=== PATIENT | female | born 1940 | race Hispanic/Latino ===

== ENCOUNTER → 2017-08-02 | Outpatient (CLI) | payer OTHER ==
[~2017-08-02] MED LIST: ACET-2247 PO; AMLO10TA2 PO; ASCO500C6 PO; ASPI-555 PO; ATOR20TA65 PO; ATOR40TA71 PO; CALC3.8S NS; CALC400I NASAL; CHOL50004 PO; CLOP75TA14 PO; DEXA4TAB PO; DIPH25 PO; DIPH30C TP; FOLI1TAB85 PO; FURO40TA7 PO; HYDR-309 PO; LACT10SO PO; LENA25CA PO; LISI-613 PO; LISI10TA7 PO; MAGN400C PO; METO-391 PO; METO-408 PO; METO-409 PO; MULT1TAB66 PO; OMEG-58 PO; POTA-79 PO; TICA90TA PO; ZINC56.7 TP
== END | disposition home or self-care (01) ==
LOC: SHCH 08:19
PROVIDERS: ATTEND Internal Medicine Cardiovascular Disease
DX: I10 Essential (primary) hypertension (principal)
CPT/HCPCS: 93306

== ENCOUNTER 2017-08-30 05:43 | Observation (INO) | payer OTHER ==
[2017-08-25 10:06] VITALS: BP 165/83
[2017-08-25 10:23] LABS: BILIRUBIN,URINE Negative (NEGATIVE); COLOR,URINE Yellow (YELLOW); GLUCOSE, URINE (UA) Negative (NEGATIVE); KETONES,URINE Negative (NEGATIVE); LEUKOCYTE ESTERASE ,URINE Trace (NEGATIVE); NITRATE,URINE Negative (NEGATIVE); OCCULT BLOOD,URINE Negative (NEGATIVE); PROTEIN,URINE Negative (NEGATIVE)
[2017-08-25 10:24] LABS: BASOPHILS % (AUTO) 0.6 % (0.0-5.0); EOSINOPHILS % (AUTO) 0.9 % (0.0-8.0); HEMATOCRIT 30.7 % (36-48); LYMPHOCYTES % (AUTO) 30.9 % (21.0-51.0); MEAN CORPUSCULAR HEMOGLOBIN 32.5 pg (27.0-33.0); MEAN CORPUSCULAR HGB CONC 34.5 g/dL (32.0-36.0); MEAN CORPUSCULAR VOLUME 94.2 fL (79-99); MONOCYTES % (AUTO) 9.4 % (3.0-13.0); NEUTROPHILS % (AUTO) 58.2 % (40.0-77.0); PLATELET COUNT (AUTO) 161 K/uL (130-400); RED BLOOD CELL COUNT(AUTO) 3.26 MIL/uL (4.00-5.50); RED CELL DISTRIBUTION WIDTH 14.7 % (11.0-15.5); WHITE BLOOD COUNT (AUTO) 4.9 K/uL (4.8-10.8)
[2017-08-25 10:26] LABS: APPEARANCE,URINE CLEAR (CLEAR)
[2017-08-25 10:34] LABS: POTASSIUM 4.1 mmol/L (3.5-5.1)
[2017-08-25 10:36] LABS: INR 1.12 (0.85-1.15); PARTIAL THROMBOPLASTIN TIME 34.2 SEC (26.3-35.5); PROTHROMBIN TIME 11.7 SEC (9.6-11.6)
[2017-08-25 10:38] LABS: AMORPHOUS SEDIMENT,UR Moderate /LPF (None Seen); BACTERIA,URINE Few /HPF (None Seen); MUCUS,URINE Few LPF (None Seen); RBC,URINE None Seen /HPF (0-1); WBC,URINE 0-1 /HPF (0-1)
[2017-08-30] VITALS (12 sets, daily range): BP systolic 137–182; BP diastolic 60–93
[~2017-08-30] VITALS: Ht 160 cm; Wt 75.9 kg
[~2017-08-30 05:43] MED LIST changes: -ACET-2247 PO; -AMLO10TA2 PO; -ASCO500C6 PO; -ASPI-555 PO; -ATOR20TA65 PO; -CALC3.8S NS; -CALC400I NASAL; -CLOP75TA14 PO; -DEXA4TAB PO; -DIPH25 PO; -DIPH30C TP; -FOLI1TAB85 PO; -FURO40TA7 PO; -HYDR-309 PO; -LACT10SO PO; -LENA25CA PO; -LISI-613 PO; -MAGN400C PO; -METO-408 PO; -METO-409 PO; -POTA-79 PO; +SODIUM CHLORIDE 0.9% 500ML 500 ML IV SCH; -TICA90TA PO; -ZINC56.7 TP
[2017-08-30] MEDS ORDERED: ASPI-555 PO (06:53)
[2017-08-30] MEDS ORDERED: SODIUM CHLORIDE 0.9% 1000ML 1,000 ML IV ONE (07:05)
[2017-08-30] MEDS ORDERED: IOPAMIDOL-370 100 ML VIAL IV ONE ×2 (07:11→07:59)
[2017-08-30] MEDS ORDERED: LIDOCAINE HCL 2% 20ML ONE (07:11)
[2017-08-30] MEDS ORDERED: NITROGLYCERIN 5 MG/ML 10 ML VIAL IV ONE (07:11)
[2017-08-30] MEDS ORDERED: BIVALIRUDIN 250 MG/VIAL IV ONE (07:11)
[2017-08-30] MEDS ORDERED: ISOVUE-370 50ML VIAL IV ONE ×2 (07:11→07:48)
[2017-08-30] MEDS ORDERED: FENTANYL CITRATE PF 50 MCG/1 ML 2ML VIAL ONE (07:38)
[2017-08-30] MEDS ORDERED: MIDAZOLAM HCL 1 MG/ML 2ML VIAL ONE (07:38)
[2017-08-30] MEDS ORDERED: ASPIRIN 81MG TAB.CHEW ONE (08:28)
[2017-08-30] MEDS ORDERED: TICAGRELOR 90 MG TABLET ONE (08:28)
[2017-08-30] MEDS ORDERED: HYDRALAZINE HCL 20 MG/ML VIAL ONE (08:30)
[2017-08-30] MEDS ORDERED: SODIUM CHLORIDE 0.9% 1000ML 1,000 ML IV SCH (08:36)
[2017-08-30] MEDS ORDERED: GLUCAGON 1MG KIT 1 MG ML IM PRN (08:45)
[2017-08-30] MEDS ORDERED: ACETAMINOPHEN-CODEINE 300/30MG TAB PO PRN (08:45)
[2017-08-30] MEDS ORDERED: DEXTROSE 50%-WATER 50 ML DISP.SYRIN IV PRN (08:45)
[2017-08-30] MEDS ORDERED: NITROGLYCERIN 0.4 MG SL TAB SL PRN (08:45)
[2017-08-30] MEDS ORDERED: METOPROLOL TARTRATE 1 MG/ML 5ML VIAL IV PRN (08:45)
[2017-08-30] MEDS: PANTOPRAZOLE SODIUM 40 MG TABLET.DR PO SCH (08:55)
[2017-08-30] MEDS: LISINOPRIL 10 MG TABLET PO SCH ×2 (09:00→21:40)
[2017-08-30] MEDS: TICAGRELOR 90 MG TABLET PO SCH ×2 (09:00→21:40)
[2017-08-30] MEDS: ASPIRIN 81 MG EC TAB PO SCH (09:00)
[2017-08-30 12:15] LABS: CREATINE KINASE MB < 0.5 ng/mL (0.5-3.6); CREATINE KINASE, TOTAL 25 U/L (21-232); MYOGLOBIN 30 ng/mL (10-92); TROPONIN I 0.04 ng/mL (0.00-0.06)
[2017-08-30] MEDS ORDERED: FUROSEMIDE 10 MG/ML 4ML VIAL IV ONE (16:45)
[2017-08-30] MEDS: ATORVASTATIN CALCIUM 40 MG TABLET PO SCH (21:40)
[2017-08-30] MEDS: METOPROLOL TARTRATE 25 MG TAB PO SCH (21:40)
[2017-08-31] VITALS (8 sets, daily range): BP systolic 128–185; BP diastolic 60–86
[2017-08-31 03:46] LABS: HEMATOCRIT 31.8 % (36-48); MEAN CORPUSCULAR HEMOGLOBIN 31.7 pg (27.0-33.0); MEAN CORPUSCULAR HGB CONC 34.1 g/dL (32.0-36.0); PLATELET COUNT (AUTO) 167 K/uL (130-400); RED BLOOD CELL COUNT(AUTO) 3.42 MIL/uL (4.00-5.50); RED CELL DISTRIBUTION WIDTH 14.7 % (11.0-15.5); WHITE BLOOD COUNT (AUTO) 5.8 K/uL (4.8-10.8)
[2017-08-31 04:24] LABS: POTASSIUM 3.2 mmol/L (3.5-5.1)
[2017-08-31] MEDS: TICAGRELOR 90 MG TABLET PO SCH ×2 (07:28→22:43)
[2017-08-31] MEDS: ASPIRIN 81 MG EC TAB PO SCH (07:28)
[2017-08-31] MEDS: METOPROLOL TARTRATE 25 MG TAB PO SCH (07:28)
[2017-08-31] MEDS: PANTOPRAZOLE SODIUM 40 MG TABLET.DR PO SCH (07:28)
[2017-08-31] MEDS: LISINOPRIL 10 MG TABLET PO SCH ×2 (07:28→22:43)
[2017-08-31] MEDS: MULTIVITAMIN TABLET PO SCH (08:10)
[2017-08-31] MEDS: HYDRALAZINE HCL 20 MG/ML VIAL IV PRN (08:12)
[2017-08-31] MEDS ORDERED: POTASSIUM CHLORIDE 20 MEQ ERTAB PO PRN (08:15)
[2017-08-31] MEDS ORDERED: POTASSIUM CHLORIDE 20MEQ/100ML 100 ML IV PRN (08:15)
[2017-08-31] MEDS ORDERED: POTASSIUM CHLORIDE 10% ELIXIR 20 MEQ/15 ML UDCUP PO PRN (08:15)
[2017-08-31] MEDS ORDERED: LIDOCAINE HCL-MPF 1% 2ML VIAL IVP PRN (08:15)
[2017-08-31] MEDS ORDERED: FUROSEMIDE 10 MG/ML 4ML VIAL IV SCH ×2 (08:15)
[2017-08-31] MEDS ORDERED: LISINOPRIL 10 MG TABLET PO SCH ×2 (08:30→09:00)
[2017-08-31] MEDS ORDERED: METOPROLOL TARTRATE 25 MG TAB PO SCH ×3 (08:30→21:00)
[2017-08-31] MEDS: POTASSIUM CHLORIDE 10% ELIXIR 20 MEQ/15 ML UDCUP PO SCH ×2 (08:46→11:08)
[2017-08-31] MEDS ORDERED: AMLODIPINE BESYLATE 5 MG TAB PO SCH (09:00)
[2017-08-31] MEDS ORDERED: FUROSEMIDE 20 MG TABLET PO SCH ×3 (17:00→20:15)
[2017-08-31] MEDS: ATORVASTATIN CALCIUM 40 MG TABLET PO SCH (22:43)
[2017-08-31] MEDS: POTASSIUM CHLORIDE 20 MEQ ERTAB PO SCH (22:44)
[2017-09-01 03:42] VITALS: BP 174/84
[2017-09-01 04:03] LABS: HEMATOCRIT 31.9 % (36-48); MEAN CORPUSCULAR HGB CONC 34.6 g/dL (32.0-36.0); MEAN CORPUSCULAR VOLUME 92.5 fL (79-99); PLATELET COUNT (AUTO) 177 K/uL (130-400); RED BLOOD CELL COUNT(AUTO) 3.45 MIL/uL (4.00-5.50); RED CELL DISTRIBUTION WIDTH 14.5 % (11.0-15.5); WHITE BLOOD COUNT (AUTO) 5.3 K/uL (4.8-10.8)
[2017-09-01 04:10] LABS: CREATININE 1.2 mg/dL (0.5-1.5); POTASSIUM 3.9 mmol/L (3.5-5.1)
[2017-09-01 04:28] LABS: B-TYPE NATRIURETIC PEPTIDE 1490 pg/mL (0-100)
[2017-09-01 04:40] LABS: BAND NEUTROPHILS % (MANUAL) 2 % (0-2); LYMPHOCYTES % (MANUAL) 23 % (22-44); MAN.DIFF COMMENT-IMPRESSION MANUAL DIFFERENTIAL; MONOCYTES % (MANUAL) 6 % (2-9); SEGMENTED NEUTROPHILS % 69 % (40-70)
[2017-09-01 04:41] LABS: PLATELET MORPHOLOGY COMMENT ADEQUATE
[2017-09-01] MEDS: PANTOPRAZOLE SODIUM 40 MG TABLET.DR PO SCH (07:31)
[2017-09-01 07:53] VITALS: BP 168/87
[2017-09-01] MEDS ORDERED: FUROSEMIDE 40 MG TABLET PO SCH (08:00)
[2017-09-01] MEDS: FUROSEMIDE 40 MG TABLET PO SCH ×2 (08:34→16:15)
[2017-09-01] MEDS: POTASSIUM CHLORIDE 20 MEQ ERTAB PO SCH (08:36)
[2017-09-01] MEDS: MULTIVITAMIN TABLET PO SCH (08:36)
[2017-09-01] MEDS: ASPIRIN 81 MG EC TAB PO SCH (08:36)
[2017-09-01] MEDS: TICAGRELOR 90 MG TABLET PO SCH (08:36)
[2017-09-01] MEDS: LISINOPRIL 10 MG TABLET PO SCH (08:40)
[2017-09-01] MEDS ORDERED: METOPROLOL TARTRATE 50 MG TAB PO SCH (09:00)
[2017-09-01] MEDS ORDERED: AMLODIPINE BESYLATE 5 MG TAB PO SCH (09:00)
[2017-09-01 10:53] VITALS: BP 163/79
[2017-09-01] MEDS: HYDRALAZINE HCL 20 MG/ML VIAL IV PRN (11:50)
[2017-09-01 12:30] VITALS: BP 145/66
[2017-09-01] MEDS ORDERED: FURO40TA7 PO (15:56)
[2017-09-01] MEDS ORDERED: METO-409 PO (15:56)
[2017-09-01] MEDS ORDERED: TICA90TA PO (15:56)
[2017-09-01] MEDS ORDERED: LISI-613 PO (15:56)
[2017-09-01] MEDS ORDERED: AMLO10TA2 PO (15:56)
[2017-09-01] MEDS ORDERED: POTA-79 PO (15:56)
[2017-09-01 15:57] VITALS: BP 137/74
== END 2017-09-01 18:41 | disposition home or self-care (01) ==
LOC: DAH 05:43 → INTOOBSV 05:44 → OBSVTOIN 05:44 → DAHIP 05:44 → DAH 05:44 → 2CH 11:05
PROVIDERS: ADMIT Internal Medicine Cardiovascular Disease; ATTEND Internal Medicine Cardiovascular Disease
DX: I25.10 Atherosclerotic heart disease of native coronary artery without angina pectoris (principal); I50.43 Acute on chronic combined systolic (congestive) and diastolic (congestive) heart failure; I25.5 Ischemic cardiomyopathy; I25.2 Old myocardial infarction; Z79.82 Long term (current) use of aspirin; Z79.899 Other long term (current) drug therapy
CPT/HCPCS: 36415 ×4; 80048 ×3; 80061; 81001; 82550; 82553; 83874; 83880 ×2; 84484; 85025 ×2; 85027; 85610; 85730; 92928; 93005; 93458; 96374; 96375; 96376; A4606; C1760; C1769; C1874; C1887; C1894 ×2; C9600; G0378 ×61; J0360 ×3; J0583; J1644; J1940 ×2; J2250; J3010; J3490 ×2; J7030; Q9967 ×3; 99152; 99153

== ENCOUNTER 2017-09-08 18:22 | Inpatient (IN) | payer OTHER ==
[~2017-09-08] VITALS: Ht 162.6 cm; Wt 72.9 kg
[~2017-09-08 18:22] MED LIST changes: +AMLO10TA2 PO; +ASPI-555 PO; -ATOR40TA71 PO; +FURO40TA7 PO; +LISI-613 PO; -LISI10TA7 PO; -METO-391 PO; +METO-409 PO; +POTA-79 PO; -SODIUM CHLORIDE 0.9% 500ML 500 ML IV SCH; +TICA90TA PO
[2017-09-08 18:56] LABS: BASOPHILS % (AUTO) 0.4 % (0.0-5.0); EOSINOPHILS % (AUTO) 0.3 % (0.0-8.0); HEMATOCRIT 33.5 % (36-48); LYMPHOCYTES % (AUTO) 18.5 % (21.0-51.0); MEAN CORPUSCULAR HEMOGLOBIN 31.9 pg (27.0-33.0); MEAN CORPUSCULAR HGB CONC 33.8 g/dL (32.0-36.0); MEAN CORPUSCULAR VOLUME 94.4 fL (79-99); MONOCYTES % (AUTO) 8.3 % (3.0-13.0); NEUTROPHILS % (AUTO) 72.5 % (40.0-77.0); PLATELET COUNT (AUTO) 185 K/uL (130-400); RED BLOOD CELL COUNT(AUTO) 3.55 MIL/uL (4.00-5.50); WHITE BLOOD COUNT (AUTO) 7.4 K/uL (4.8-10.8)
[2017-09-08 19:23] LABS: ABG BASE EXCESS -5.1 mmol/L (-2.0-3.0); ABG HCO3 18.9 mmol/L (21.0-28.0); ABG PCO2 32 mmHg (32-45)
[2017-09-08 19:27] LABS: CREATINE KINASE MB < 0.5 ng/mL (0.5-3.6); CREATINE KINASE, TOTAL 59 U/L (21-232)
[2017-09-08 19:33] LABS: INR 1.08 (0.85-1.15); PROTHROMBIN TIME 11.3 SEC (9.6-11.6)
[2017-09-08] MEDS ORDERED: SODIUM POLYSTYRENE SULFONATE 15 GM/60 ML ML ONE ×2 (19:44→19:49)
[2017-09-08] MEDS ORDERED: SODIUM BICARB 50MEQ 50ML VIAL ONE (19:45)
[2017-09-08] MEDS ORDERED: DEXTROSE 50%-WATER 50 ML DISP.SYRIN IV ONE (19:45)
[2017-09-08] MEDS ORDERED: INSULIN HUMULIN R 100 UNIT/ML 3ML ONE ×2 (19:46→19:47)
[2017-09-08 19:55] LABS: APPEARANCE,URINE Clear (CLEAR); BILIRUBIN,URINE Negative (NEGATIVE); COLOR,URINE Yellow (YELLOW); GLUCOSE, URINE (UA) Negative (NEGATIVE); KETONES,URINE Negative (NEGATIVE); LEUKOCYTE ESTERASE ,URINE Negative (NEGATIVE); NITRATE,URINE Negative (NEGATIVE); OCCULT BLOOD,URINE Negative (NEGATIVE); PROTEIN,URINE Trace (NEGATIVE); UROBILINOGEN,URINE 0.2 mg/dL (0.2-1.0)
[2017-09-08 20:14] LABS: BACTERIA,URINE Few /HPF (None Seen); RBC,URINE 0-1 /HPF (0-1); SQUAMOUS EPITHELIAL CELL,UR Few /LPF (0-2); WBC,URINE 0-1 /HPF (0-1)
[2017-09-08 20:16] LABS: MUCUS,URINE Rare LPF (None Seen)
[2017-09-08 20:17] LABS: HYALINE CASTS, URINE 0-1 /LPF (0-1 /LPF)
[2017-09-08 20:56] LABS: BILIRUBIN,TOTAL 0.5 mg/dL (0.2-1.0); CREATININE 3.3 mg/dL (0.5-1.5); POTASSIUM 5.6 mmol/L (3.5-5.1); TOTAL PROTEIN, SERUM 14.5 g/dL (6.0-8.3)
[2017-09-08 23:39] VITALS: BP 103/50
[2017-09-09] VITALS (7 sets, daily range): BP systolic 136–172; BP diastolic 69–102
[2017-09-09] MEDS ORDERED: NITROGLYCERIN 0.4 MG SL TAB SL PRN (00:30)
[2017-09-09] MEDS ORDERED: ACETAMINOPHEN 325 MG TAB PO PRN (00:30)
[2017-09-09] MEDS ORDERED: LACTULOSE 20 GM/30 ML UDCUP PO PRN (00:30)
[2017-09-09] MEDS ORDERED: METO-391 PO (03:16)
[2017-09-09] MEDS ORDERED: ATOR20TA65 PO (03:16)
[2017-09-09] MEDS ORDERED: CLOP75TA14 PO (03:16)
[2017-09-09 04:26] LABS: HEMATOCRIT 32.3 % (36-48); MEAN CORPUSCULAR HEMOGLOBIN 32.3 pg (27.0-33.0); MEAN CORPUSCULAR HGB CONC 34.4 g/dL (32.0-36.0); MEAN CORPUSCULAR VOLUME 93.7 fL (79-99); PLATELET COUNT (AUTO) 180 K/uL (130-400); RED BLOOD CELL COUNT(AUTO) 3.45 MIL/uL (4.00-5.50); RED CELL DISTRIBUTION WIDTH 14.1 % (11.0-15.5); WHITE BLOOD COUNT (AUTO) 7.9 K/uL (4.8-10.8)
[2017-09-09 04:45] LABS: BAND NEUTROPHILS % (MANUAL) 6 % (0-2); EOSINOPHILS % (MANUAL) 1 % (1-6); LYMPHOCYTES % (MANUAL) 13 % (22-44); MONOCYTES % (MANUAL) 6 % (2-9); SEGMENTED NEUTROPHILS % 74 % (40-70)
[2017-09-09 04:47] LABS: MAN.DIFF COMMENT-IMPRESSION MANUAL DIFFERENTIAL; PLATELET MORPHOLOGY COMMENT ADEQUATE
[2017-09-09 05:00] LABS: CREATININE 3.8 mg/dL (0.5-1.5); THYROID STIMULATING HORMONE 0.96 uIU/mL (0.36-3.74)
[2017-09-09 05:01] LABS: B-TYPE NATRIURETIC PEPTIDE 400 pg/mL (0-100)
[2017-09-09] MEDS ORDERED: SODIUM CHLORIDE 0.9% 500ML 500 ML IV SCH (09:00)
[2017-09-09] MEDS: TICAGRELOR 90 MG TABLET PO SCH ×2 (11:45→22:20)
[2017-09-09] MEDS: FAMOTIDINE 20MG TAB 20 MG TAB PO SCH (11:45)
[2017-09-09] MEDS: ASPIRIN 81 MG EC TAB PO SCH (11:45)
[2017-09-09] MEDS: SODIUM CHLORIDE 0.9% 1000ML 1,000 ML IV SCH ×2 (11:47→22:31)
[2017-09-09 18:35] LABS: CREATININE 2.9 mg/dL (0.5-1.5); POTASSIUM 4.2 mmol/L (3.5-5.1)
[2017-09-09] MEDS: CALCITONIN 200 UNITS/ML 2 ML VIAL SQ SCH (22:15)
[2017-09-09] MEDS: ATORVASTATIN CALCIUM 20 MG TABLET PO SCH (22:20)
[2017-09-10] VITALS (7 sets, daily range): BP systolic 138–172; BP diastolic 61–80
[2017-09-10 04:25] LABS: HEMATOCRIT 29.5 % (36-48); MEAN CORPUSCULAR HEMOGLOBIN 32.6 pg (27.0-33.0); MEAN CORPUSCULAR VOLUME 93.4 fL (79-99); NUCLEATED RED BLOOD CELLS 0.1 % (0.0-0.19); PLATELET COUNT (AUTO) 158 K/uL (130-400); RED BLOOD CELL COUNT(AUTO) 3.16 MIL/uL (4.00-5.50); RED CELL DISTRIBUTION WIDTH 14.3 % (11.0-15.5); WHITE BLOOD COUNT (AUTO) 6.9 K/uL (4.8-10.8)
[2017-09-10 04:34] LABS: CREATININE 2.4 mg/dL (0.5-1.5); MAGNESIUM 1.4 mg/dL (1.80-2.40); POTASSIUM 3.9 mmol/L (3.5-5.1)
[2017-09-10] MEDS: ACETAMINOPHEN 325 MG TAB PO PRN (06:46)
[2017-09-10] MEDS: TICAGRELOR 90 MG TABLET PO SCH ×2 (08:37→20:37)
[2017-09-10] MEDS: FAMOTIDINE 20MG TAB 20 MG TAB PO SCH (08:37)
[2017-09-10] MEDS: ASPIRIN 81 MG EC TAB PO SCH (08:37)
[2017-09-10] MEDS: METOPROLOL TARTRATE 50 MG TAB PO SCH ×2 (08:38→20:38)
[2017-09-10] MEDS: CALCITONIN 200 UNITS/ML 2 ML VIAL SQ SCH ×2 (08:41→20:38)
[2017-09-10] MEDS ORDERED: FUROSEMIDE 10 MG/ML 2ML VIAL IV SCH (09:30)
[2017-09-10] MEDS ORDERED: PHARMACY COMMUNICATION MISC SCH (15:30)
[2017-09-10 18:47] LABS: CREATININE 1.9 mg/dL (0.5-1.5); POTASSIUM 3.5 mmol/L (3.5-5.1)
[2017-09-10] MEDS: ATORVASTATIN CALCIUM 20 MG TABLET PO SCH (20:37)
[2017-09-11] VITALS (7 sets, daily range): BP systolic 124–177; BP diastolic 64–88
[2017-09-11 04:20] LABS: HEMATOCRIT 30.2 % (36-48); MEAN CORPUSCULAR HEMOGLOBIN 32.2 pg (27.0-33.0); MEAN CORPUSCULAR HGB CONC 34.5 g/dL (32.0-36.0); MEAN CORPUSCULAR VOLUME 93.2 fL (79-99); PLATELET COUNT (AUTO) 152 K/uL (130-400); RED BLOOD CELL COUNT(AUTO) 3.24 MIL/uL (4.00-5.50); RED CELL DISTRIBUTION WIDTH 13.9 % (11.0-15.5); WHITE BLOOD COUNT (AUTO) 6.5 K/uL (4.8-10.8)
[2017-09-11 04:26] LABS: CREATININE 1.8 mg/dL (0.5-1.5); POTASSIUM 3.2 mmol/L (3.5-5.1)
[2017-09-11 04:51] LABS: B-TYPE NATRIURETIC PEPTIDE 943 pg/mL (0-100)
[2017-09-11] MEDS: TICAGRELOR 90 MG TABLET PO SCH ×2 (07:55→20:08)
[2017-09-11] MEDS: CLONIDINE HCL 0.1 MG TABLET PO PRN (07:55)
[2017-09-11] MEDS: METOPROLOL TARTRATE 50 MG TAB PO SCH ×2 (07:55→20:08)
[2017-09-11] MEDS: ASPIRIN 81 MG EC TAB PO SCH (07:55)
[2017-09-11] MEDS: FAMOTIDINE 20MG TAB 20 MG TAB PO SCH (07:55)
[2017-09-11] MEDS: CALCITONIN 200 UNITS/ML 2 ML VIAL SQ SCH (09:00)
[2017-09-11] MEDS ORDERED: FUROSEMIDE 10 MG/ML 2ML VIAL IV SCH (09:30)
[2017-09-11] MEDS: ATORVASTATIN CALCIUM 20 MG TABLET PO SCH (20:08)
[2017-09-12] VITALS (8 sets, daily range): BP systolic 142–170; BP diastolic 61–75
[2017-09-12 04:33] LABS: HEMATOCRIT 30.2 % (36-48); MEAN CORPUSCULAR HEMOGLOBIN 31.7 pg (27.0-33.0); MEAN CORPUSCULAR HGB CONC 34.7 g/dL (32.0-36.0); MEAN CORPUSCULAR VOLUME 91.5 fL (79-99); NUCLEATED RED BLOOD CELLS 0.1 % (0.0-0.19); PLATELET COUNT (AUTO) 156 K/uL (130-400); RED CELL DISTRIBUTION WIDTH 13.9 % (11.0-15.5); WHITE BLOOD COUNT (AUTO) 5.8 K/uL (4.8-10.8)
[2017-09-12 04:42] LABS: CREATININE 1.6 mg/dL (0.5-1.5); POTASSIUM 3.2 mmol/L (3.5-5.1)
[2017-09-12 04:57] LABS: B-TYPE NATRIURETIC PEPTIDE 474 pg/mL (0-100)
[2017-09-12] MEDS: ASPIRIN 81 MG EC TAB PO SCH (08:37)
[2017-09-12] MEDS: CLONIDINE HCL 0.1 MG TABLET PO PRN (08:37)
[2017-09-12] MEDS: TICAGRELOR 90 MG TABLET PO SCH ×2 (08:38→20:00)
[2017-09-12] MEDS: FAMOTIDINE 20MG TAB 20 MG TAB PO SCH (08:38)
[2017-09-12] MEDS: METOPROLOL TARTRATE 50 MG TAB PO SCH (08:38)
[2017-09-12] MEDS ORDERED: FUROSEMIDE 20 MG TABLET PO SCH (09:00)
[2017-09-12] MEDS ORDERED: POTASSIUM CHLORIDE 20MEQ/100ML 100 ML IV PRN (10:30)
[2017-09-12] MEDS ORDERED: LIDOCAINE HCL-MPF 1% 2ML VIAL IVP PRN (10:30)
[2017-09-12] MEDS: POTASSIUM CHLORIDE 10% ELIXIR 20 MEQ/15 ML UDCUP PO PRN ×3 (11:32→16:17)
[2017-09-12] MEDS: ATORVASTATIN CALCIUM 20 MG TABLET PO SCH (20:00)
[2017-09-12] MEDS: CARVEDILOL 12.5 MG TABLET PO SCH (20:01)
[2017-09-13] VITALS (9 sets, daily range): BP systolic 110–182; BP diastolic 49–80
[2017-09-13 05:23] LABS: CREATININE 1.7 mg/dL (0.5-1.5); POTASSIUM 3.8 mmol/L (3.5-5.1)
[2017-09-13] MEDS: ASPIRIN 81 MG EC TAB PO SCH (09:00)
[2017-09-13] MEDS: FAMOTIDINE 20MG TAB 20 MG TAB PO SCH (09:00)
[2017-09-13] MEDS: TICAGRELOR 90 MG TABLET PO SCH ×2 (09:00→20:08)
[2017-09-13] MEDS: CARVEDILOL 12.5 MG TABLET PO SCH ×2 (09:00→20:10)
[2017-09-13] MEDS ORDERED: FENTANYL CITRATE PF 50 MCG/1 ML 2ML VIAL ONE (13:55)
[2017-09-13] MEDS: ACETAMINOPHEN 325 MG TAB PO PRN (18:49)
[2017-09-13] MEDS: FUROSEMIDE 20 MG TABLET PO SCH (20:08)
[2017-09-13] MEDS: ATORVASTATIN CALCIUM 20 MG TABLET PO SCH (20:08)
[2017-09-13] MEDS: ZOLPIDEM TARTRATE 5 MG TAB PO ONE ×2 (22:00→22:27)
[2017-09-14 03:40] VITALS: BP 137/67
[2017-09-14 04:08] LABS: CREATININE 1.9 mg/dL (0.5-1.5); POTASSIUM 3.8 mmol/L (3.5-5.1)
[2017-09-14 07:00] VITALS: BP 146/72
[2017-09-14] MEDS: CARVEDILOL 12.5 MG TABLET PO SCH ×2 (09:50→20:20)
[2017-09-14] MEDS: ASPIRIN 81 MG EC TAB PO SCH (09:50)
[2017-09-14] MEDS: TICAGRELOR 90 MG TABLET PO SCH ×2 (09:50→20:19)
[2017-09-14] MEDS: FAMOTIDINE 20MG TAB 20 MG TAB PO SCH (09:50)
[2017-09-14] MEDS: FUROSEMIDE 20 MG TABLET PO SCH ×2 (09:51→20:19)
[2017-09-14] MEDS: POTASSIUM CHLORIDE 20 MEQ ERTAB PO PRN ×2 (09:57→11:51)
[2017-09-14 11:00] VITALS: BP 171/74
[2017-09-14 16:00] VITALS: BP 148/85
[2017-09-14 19:48] VITALS: BP 136/46
[2017-09-14] MEDS: ATORVASTATIN CALCIUM 20 MG TABLET PO SCH (20:19)
[2017-09-14 23:56] VITALS: BP 127/54
[2017-09-15 04:06] VITALS: BP 141/69
[2017-09-15 07:37] VITALS: BP 144/72
[2017-09-15] MEDS: FAMOTIDINE 20MG TAB 20 MG TAB PO SCH (08:21)
[2017-09-15] MEDS: TICAGRELOR 90 MG TABLET PO SCH (08:21)
[2017-09-15] MEDS: ASPIRIN 81 MG EC TAB PO SCH (08:21)
[2017-09-15 08:22] VITALS: BP 144/72
[2017-09-15] MEDS: CARVEDILOL 12.5 MG TABLET PO SCH (08:22)
[2017-09-15] MEDS: FUROSEMIDE 20 MG TABLET PO SCH (08:22)
[2017-09-15] MEDS ORDERED: DEXAMETHASONE 4 MG TAB PO SCH (09:00)
== END 2017-09-15 10:00 | disposition home or self-care (01) | DRG 840 ==
LOC: EDH 18:22 → OBSVTOIN 19:50 → EDHIP 19:50 → 2AH 22:48
PROVIDERS: ADMIT Family Medicine; ATTEND Family Medicine
PROC: 07DR3ZX Extraction of Iliac Bone Marrow, Percutaneous Approach, Diagnostic (ICD-10-PCS; principal; 2017-09-13)
DX: C90.00 Multiple myeloma not having achieved remission (principal); I50.23 Acute on chronic systolic (congestive) heart failure; N17.9 Acute kidney failure, unspecified; I13.0 Hypertensive heart and chronic kidney disease with heart failure and stage 1 through stage 4 chronic kidney disease, or unspecified chronic kidney disease; E87.1 Hypo-osmolality and hyponatremia; E86.0 Dehydration; E11.22 Type 2 diabetes mellitus with diabetic chronic kidney disease; E83.52 Hypercalcemia; D64.9 Anemia, unspecified; D75.89 Other specified diseases of blood and blood-forming organs; E78.5 Hyperlipidemia, unspecified; E87.5 Hyperkalemia; I25.10 Atherosclerotic heart disease of native coronary artery without angina pectoris; I25.5 Ischemic cardiomyopathy; N18.9 Chronic kidney disease, unspecified; I25.2 Old myocardial infarction; Z79.02 Long term (current) use of antithrombotics/antiplatelets; Z79.82 Long term (current) use of aspirin; Z79.899 Other long term (current) drug therapy; Z90.710 Acquired absence of both cervix and uterus; Z95.5 Presence of coronary angioplasty implant and graft
CPT/HCPCS: 36415; 36600; 71045; 76770; 77012; 77075; 80048; 80053; 81001; 82330; 82435; 82550; 82553; 82652; 82803; 82947; 82948; 83605; 83735; 83880; 83883; 83970; 84132; 84156; 84165; 84295; 84443; 84484; 85018; 85025; 85027; 85610; 85730; 88184; 88185; 88237; 88262; 88305; 88311; 88313; 88341; 88342; 88377; 93005; 97039; 99291; J0630; J1815; J1940; J3010; J3490; J7030; J7070; J8540

== ENCOUNTER 2017-10-03 12:41 | Inpatient (IN) | payer OTHER ==
[~2017-10-03] VITALS: Ht 162.6 cm; Wt 69.5 kg
[~2017-10-03 12:41] MED LIST changes: +ATOR20TA65 PO; -CHOL50004 PO; +CLOP75TA14 PO; +METO-391 PO; -METO-409 PO; -MULT1TAB66 PO; -POTA-79 PO
[2017-10-03 13:10] LABS: BASOPHILS % (AUTO) 0.2 % (0.0-5.0); EOSINOPHILS % (AUTO) 0.8 % (0.0-8.0); HEMATOCRIT 26.9 % (36-48); LYMPHOCYTES % (AUTO) 23.6 % (21.0-51.0); MEAN CORPUSCULAR HEMOGLOBIN 32.7 pg (27.0-33.0); MEAN CORPUSCULAR HGB CONC 36.1 g/dL (32.0-36.0); MEAN CORPUSCULAR VOLUME 90.8 fL (79-99); MONOCYTES % (AUTO) 6.4 % (3.0-13.0); NUCLEATED RED BLOOD CELLS 0.3 % (0.0-0.19); PLATELET COUNT (AUTO) 85 K/uL (130-400); RED BLOOD CELL COUNT(AUTO) 2.96 MIL/uL (4.00-5.50)
[2017-10-03 13:19] LABS: INR 1.02 (0.85-1.15); PARTIAL THROMBOPLASTIN TIME 21.4 SEC (26.3-35.5); PROTHROMBIN TIME 10.7 SEC (9.6-11.6)
[2017-10-03 13:32] LABS: ALBUMIN 2.9 g/dL (3.5-5.0); BILIRUBIN,TOTAL 0.5 mg/dL (0.2-1.0); CREATINE KINASE MB 0.9 ng/mL (0.5-3.6); POTASSIUM 3.1 mmol/L (3.5-5.1); TOTAL PROTEIN, SERUM 12.6 g/dL (6.0-8.3)
[2017-10-03 13:37] LABS: B-TYPE NATRIURETIC PEPTIDE 274 pg/mL (0-100)
[2017-10-03] MEDS ORDERED: SODIUM CHLORIDE 0.9% 50 ML IV ONE (13:53)
[2017-10-03] MEDS ORDERED: CEFEPIME HCL 1 GM VIAL ONE (13:53)
[2017-10-03 14:08] LABS: LYMPHOCYTES % (MANUAL) 26 % (22-44); MONOCYTES % (MANUAL) 4 % (2-9); PLATELET MORPHOLOGY COMMENT DECREASED; SEGMENTED NEUTROPHILS % 70 % (40-70)
[2017-10-03 20:29] VITALS: BP 123/65
[2017-10-03 21:18] LABS: CREATINE KINASE MB 1.5 ng/mL (0.5-3.6); TROPONIN I 0.12 ng/mL (0.00-0.06)
[2017-10-03] MEDS ORDERED: SODIUM CHLORIDE 0.9% 1000ML 1,000 ML IV SCH (22:00)
[2017-10-03] MEDS ORDERED: ONDANSETRON HCL MDV 20ML 2 MG/ML VIAL IVP PRN (22:00)
[2017-10-03 23:00] VITALS: BP 129/48
[2017-10-04] MEDS ORDERED: LENA25CA PO (01:27)
[2017-10-04 02:30] LABS: HEMATOCRIT 25.3 % (36-48); MEAN CORPUSCULAR HEMOGLOBIN 32.4 pg (27.0-33.0); MEAN CORPUSCULAR HGB CONC 35.4 g/dL (32.0-36.0); MEAN CORPUSCULAR VOLUME 91.6 fL (79-99); PLATELET COUNT (AUTO) 63 K/uL (130-400); RED BLOOD CELL COUNT(AUTO) 2.76 MIL/uL (4.00-5.50); RED CELL DISTRIBUTION WIDTH 13.8 % (11.0-15.5); WHITE BLOOD COUNT (AUTO) 2.3 K/uL (4.8-10.8)
[2017-10-04 02:58] LABS: CREATININE 2.2 mg/dL (0.5-1.5); TROPONIN I 0.11 ng/mL (0.00-0.06)
[2017-10-04 03:00] VITALS: BP 133/50
[2017-10-04 03:12] LABS: POTASSIUM 2.8 mmol/L (3.5-5.1)
[2017-10-04] MEDS ORDERED: POTASSIUM CHLORIDE 10% ELIXIR 20 MEQ/15 ML UDCUP PO PRN (06:30)
[2017-10-04 08:00] VITALS: BP 119/61
[2017-10-04 11:00] VITALS: BP 149/58
[2017-10-04] MEDS: MAGNESIUM 2GM PREMIX 50ML 50 ML IV PRN (12:21)
[2017-10-04] MEDS: POTASSIUM CHLORIDE 20MEQ/100ML 100 ML IV PRN ×2 (12:21→21:39)
[2017-10-04] MEDS: LIDOCAINE HCL-MPF 1% 2ML VIAL IVP PRN ×2 (12:21→21:38)
[2017-10-04] MEDS ORDERED: PHARMACY COMMUNICATION MISC SCH (13:00)
[2017-10-04] MEDS ORDERED: COMPOUND IV MISC 1 EACH IVSOLN MISC PRN (13:45)
[2017-10-04] MEDS ORDERED: ZOSYN 3.375GM+NS 50ML 50 ML IV SCH (15:30)
[2017-10-04] MEDS ORDERED: VANCOMYCIN PROTOCOL PER PHARMACY IV SCH (15:30)
[2017-10-04] MEDS: DEXAMETHASONE 10MG/ML 1ML VIAL 20 MG in SODIUM CHLORIDE 0.9% 50 ML IV SCH (15:35)
[2017-10-04 16:00] VITALS: BP 164/66
[2017-10-04] MEDS: VANCOMYCIN 1GM+NS 250ML 250 ML IV SCH (16:52)
[2017-10-04] MEDS: MEROPENEM 500 MG VIAL IVP SCH (17:01)
[2017-10-04] MEDS: SODIUM CHLORIDE 0.9% 1000ML 1,000 ML IV SCH ×2 (17:07→21:38)
[2017-10-04 19:15] VITALS: BP 142/67
[2017-10-04] MEDS ORDERED: CALCITONIN 200 UNITS/ML 2 ML VIAL SQ SCH (21:00)
[2017-10-04] MEDS: FUROSEMIDE 40 MG TABLET PO SCH (21:39)
[2017-10-04] MEDS: ATORVASTATIN CALCIUM 40 MG TABLET PO SCH (21:40)
[2017-10-04] MEDS: LISINOPRIL 20 MG TABLET PO SCH (21:40)
[2017-10-04] MEDS: CALCITONIN 3.7 ML AEROSOL NS SCH (21:41)
[2017-10-04 23:00] VITALS: BP 153/81
[2017-10-05 03:00] VITALS: BP 165/78
[2017-10-05] MEDS: SODIUM CHLORIDE 0.9% 1000ML 1,000 ML IV SCH ×3 (03:50→21:12)
[2017-10-05 03:55] LABS: HEMATOCRIT 26.9 % (36-48); MEAN CORPUSCULAR HEMOGLOBIN 32.3 pg (27.0-33.0); MEAN CORPUSCULAR HGB CONC 35.3 g/dL (32.0-36.0); MEAN CORPUSCULAR VOLUME 91.6 fL (79-99); NUCLEATED RED BLOOD CELLS 0.1 % (0.0-0.19); PLATELET COUNT (AUTO) 67 K/uL (130-400); RED BLOOD CELL COUNT(AUTO) 2.94 MIL/uL (4.00-5.50); RED CELL DISTRIBUTION WIDTH 13.8 % (11.0-15.5); WHITE BLOOD COUNT (AUTO) 2.9 K/uL (4.8-10.8)
[2017-10-05 04:11] LABS: BAND NEUTROPHILS % (MANUAL) 8 % (0-2); LYMPHOCYTES % (MANUAL) 16 % (22-44); MAN.DIFF COMMENT-IMPRESSION MANUAL DIFFERENTIAL; MONOCYTES % (MANUAL) 8 % (2-9); PLATELET MORPHOLOGY COMMENT DECREASED; SEGMENTED NEUTROPHILS % 68 % (40-70)
[2017-10-05 04:21] LABS: CREATININE 1.6 mg/dL (0.5-1.5); MAGNESIUM 1.8 mg/dL (1.80-2.40); PHOSPHORUS 2.7 mg/dL (2.5-4.9)
[2017-10-05 04:23] LABS: POTASSIUM 2.9 mmol/L (3.5-5.1)
[2017-10-05] MEDS: MEROPENEM 500 MG VIAL IVP SCH (05:27)
[2017-10-05] MEDS: MAGNESIUM 2GM PREMIX 50ML 50 ML IV PRN (05:27)
[2017-10-05 08:00] VITALS: BP 150/73
[2017-10-05] MEDS: **HM** TOPROL XL 100MG PO SCH ×2 (09:00→21:00)
[2017-10-05] MEDS: CALCITONIN 3.7 ML AEROSOL NS SCH ×2 (09:37→21:13)
[2017-10-05] MEDS: AMLODIPINE BESYLATE 5 MG TAB PO SCH (09:42)
[2017-10-05] MEDS: FUROSEMIDE 40 MG TABLET PO SCH ×2 (09:42→21:13)
[2017-10-05] MEDS: CLOPIDOGREL BISULFATE 75 MG TAB PO SCH (09:42)
[2017-10-05] MEDS: LISINOPRIL 20 MG TABLET PO SCH ×2 (09:42→21:13)
[2017-10-05] MEDS: FISH OIL 1000 MG/CAP PO SCH (09:42)
[2017-10-05] MEDS: ASPIRIN 81 MG EC TAB PO SCH (09:43)
[2017-10-05] MEDS: LIDOCAINE HCL-MPF 1% 2ML VIAL IVP PRN (09:48)
[2017-10-05] MEDS: POTASSIUM CHLORIDE 20MEQ/100ML 100 ML IV PRN ×2 (09:48→15:51)
[2017-10-05 11:00] VITALS: BP 154/64
[2017-10-05] MEDS ORDERED: MEGESTROL 400 MG/10 ML UDCUP PO SCH (13:15)
[2017-10-05] MEDS: DEXAMETHASONE 10MG/ML 1ML VIAL 20 MG in SODIUM CHLORIDE 0.9% 50 ML IV SCH (13:30)
[2017-10-05 16:00] VITALS: BP 157/75
[2017-10-05 19:00] VITALS: BP 163/66
[2017-10-05] MEDS ORDERED: LEVOFLOXACIN 500 MG TABLET PO SCH (21:00)
[2017-10-05] MEDS: ATORVASTATIN CALCIUM 40 MG TABLET PO SCH (21:14)
[2017-10-05 23:00] VITALS: BP 154/77
[2017-10-06] MEDS ORDERED: MORPHINE SULFATE 2 MG/ML 1ML SYG ONE (01:37)
[2017-10-06] MEDS ORDERED: MORPHINE SULFATE 2 MG/ML 1ML SYG IVP PRN ×2 (01:45)
[2017-10-06] MEDS: DiphenhydrAMINE HCL 50 MG/ML VIAL IV SCH ×2 (02:15→20:31)
[2017-10-06] MEDS ORDERED: DiphenhydrAMINE HCL 50 MG/ML VIAL IV PRN (02:15)
[2017-10-06] MEDS ORDERED: DiphenhydrAMINE HCL 50 MG/ML VIAL ONE (02:27)
[2017-10-06 03:00] VITALS: BP 152/68
[2017-10-06] MEDS: FAMOTIDINE/PF 20 MG/2 ML VIAL IV SCH (03:52)
[2017-10-06 04:02] LABS: HEMATOCRIT 24.9 % (36-48); MEAN CORPUSCULAR HEMOGLOBIN 33.5 pg (27.0-33.0); MEAN CORPUSCULAR HGB CONC 36.1 g/dL (32.0-36.0); MEAN CORPUSCULAR VOLUME 92.6 fL (79-99); NUCLEATED RED BLOOD CELLS 0.1 % (0.0-0.19); PLATELET COUNT (AUTO) 74 K/uL (130-400); RED BLOOD CELL COUNT(AUTO) 2.69 MIL/uL (4.00-5.50); RED CELL DISTRIBUTION WIDTH 13.8 % (11.0-15.5); WHITE BLOOD COUNT (AUTO) 3.3 K/uL (4.8-10.8)
[2017-10-06 04:14] LABS: CREATININE 1.6 mg/dL (0.5-1.5)
[2017-10-06 04:37] LABS: POTASSIUM 2.5 mmol/L (3.5-5.1)
[2017-10-06] MEDS: MAGNESIUM 2GM PREMIX 50ML 50 ML IV PRN (05:33)
[2017-10-06] MEDS: SODIUM CHLORIDE 0.9% 1000ML 1,000 ML IV SCH ×2 (05:33→07:30)
[2017-10-06] MEDS ORDERED: MEPERIDINE HCL/PF 25 MG/0.5 ML AMPUL IVP SCH (06:15)
[2017-10-06] MEDS: POTASSIUM CHLORIDE 20MEQ/100ML 100 ML IV PRN ×2 (06:49→22:55)
[2017-10-06] MEDS: LIDOCAINE HCL-MPF 1% 2ML VIAL IVP PRN (06:49)
[2017-10-06 08:00] VITALS: BP 109/59
[2017-10-06] MEDS: ASPIRIN 81 MG EC TAB PO SCH (08:44)
[2017-10-06] MEDS: LISINOPRIL 20 MG TABLET PO SCH ×2 (08:45→21:54)
[2017-10-06] MEDS: CLOPIDOGREL BISULFATE 75 MG TAB PO SCH (08:45)
[2017-10-06] MEDS: AMLODIPINE BESYLATE 5 MG TAB PO SCH (08:45)
[2017-10-06] MEDS: FUROSEMIDE 40 MG TABLET PO SCH (08:45)
[2017-10-06] MEDS: FISH OIL 1000 MG/CAP PO SCH (08:45)
[2017-10-06] MEDS: **HM** TOPROL XL 100MG PO SCH ×2 (09:00→21:00)
[2017-10-06] MEDS: DEXAMETHASONE 10MG/ML 1ML VIAL 20 MG in SODIUM CHLORIDE 0.9% 50 ML IV SCH (09:03)
[2017-10-06] MEDS: CALCITONIN 3.7 ML AEROSOL NS SCH ×2 (09:03→21:55)
[2017-10-06 11:00] VITALS: BP 162/72
[2017-10-06] MEDS: VANCOMYCIN 1GM+NS 250ML 250 ML IV SCH (15:20)
[2017-10-06 16:00] VITALS: BP 160/87
[2017-10-06] MEDS ORDERED: MAGNESIUM 2GM PREMIX 50ML 50 ML IV SCH (16:00)
[2017-10-06] MEDS: NS-20 MEQ KCL 1000ML 1,000 ML IV SCH ×2 (21:53→22:40)
[2017-10-06] MEDS: ATORVASTATIN CALCIUM 40 MG TABLET PO SCH (21:53)
[2017-10-06 23:24] VITALS: BP 177/87
[2017-10-07] VITALS (7 sets, daily range): BP systolic 111–173; BP diastolic 62–83
[2017-10-07] MEDS: FAMOTIDINE/PF 20 MG/2 ML VIAL IV SCH (01:20)
[2017-10-07] MEDS: POTASSIUM CHLORIDE 20MEQ/100ML 100 ML IV PRN (01:36)
[2017-10-07 03:32] LABS: HEMATOCRIT 25.3 % (36-48); MEAN CORPUSCULAR HEMOGLOBIN 32.4 pg (27.0-33.0); MEAN CORPUSCULAR HGB CONC 34.8 g/dL (32.0-36.0); MEAN CORPUSCULAR VOLUME 93.2 fL (79-99); NUCLEATED RED BLOOD CELLS 0.1 % (0.0-0.19); PLATELET COUNT (AUTO) 82 K/uL (130-400); RED BLOOD CELL COUNT(AUTO) 2.71 MIL/uL (4.00-5.50); RED CELL DISTRIBUTION WIDTH 14.1 % (11.0-15.5); WHITE BLOOD COUNT (AUTO) 4.4 K/uL (4.8-10.8)
[2017-10-07 03:44] LABS: ALBUMIN 2.4 g/dL (3.5-5.0); BILIRUBIN,TOTAL 0.4 mg/dL (0.2-1.0); CREATININE 1.7 mg/dL (0.5-1.5); MAGNESIUM 1.8 mg/dL (1.80-2.40); PHOSPHORUS 1.5 mg/dL (2.5-4.9); POTASSIUM 3.5 mmol/L (3.5-5.1); TOTAL PROTEIN, SERUM 9.1 g/dL (6.0-8.3)
[2017-10-07] MEDS: MAGNESIUM 2GM PREMIX 50ML 50 ML IV PRN (04:13)
[2017-10-07] MEDS: NS-20 MEQ KCL 1000ML 1,000 ML IV SCH (05:04)
[2017-10-07] MEDS: CLOPIDOGREL BISULFATE 75 MG TAB PO SCH (09:17)
[2017-10-07] MEDS: FISH OIL 1000 MG/CAP PO SCH (09:17)
[2017-10-07] MEDS: POTASSIUM CHLORIDE 20 MEQ ERTAB PO PRN (09:18)
[2017-10-07] MEDS: LISINOPRIL 20 MG TABLET PO SCH ×2 (09:18→22:26)
[2017-10-07] MEDS: AMLODIPINE BESYLATE 5 MG TAB PO SCH (09:18)
[2017-10-07] MEDS: METOPROLOL TARTRATE 50 MG TAB PO SCH ×2 (09:18→22:25)
[2017-10-07] MEDS: ASPIRIN 81 MG EC TAB PO SCH (09:18)
[2017-10-07] MEDS: CALCITONIN 3.7 ML AEROSOL NS SCH ×2 (09:32→22:28)
[2017-10-07] MEDS ORDERED: HEPARIN SODIUM 5000UNIT/ML 1ML VIAL SQ SCH (17:45)
[2017-10-07] MEDS ORDERED: MAGNESIUM 2GM PREMIX 50ML 50 ML IV SCH (17:45)
[2017-10-07] MEDS: ATORVASTATIN CALCIUM 40 MG TABLET PO SCH (22:25)
[2017-10-08] MEDS: DiphenhydrAMINE HCL 50 MG/ML VIAL IV SCH (01:18)
[2017-10-08] MEDS: FAMOTIDINE/PF 20 MG/2 ML VIAL IV SCH (01:19)
[2017-10-08 03:52] VITALS: BP 133/62
[2017-10-08 03:57] LABS: HEMATOCRIT 25.7 % (36-48); MEAN CORPUSCULAR HEMOGLOBIN 32.7 pg (27.0-33.0); MEAN CORPUSCULAR HGB CONC 34.6 g/dL (32.0-36.0); MEAN CORPUSCULAR VOLUME 94.5 fL (79-99); NUCLEATED RED BLOOD CELLS 0.1 % (0.0-0.19); PLATELET COUNT (AUTO) 85 K/uL (130-400); RED BLOOD CELL COUNT(AUTO) 2.72 MIL/uL (4.00-5.50); RED CELL DISTRIBUTION WIDTH 14.6 % (11.0-15.5); WHITE BLOOD COUNT (AUTO) 3.6 K/uL (4.8-10.8)
[2017-10-08 04:09] LABS: INR 1.12 (0.85-1.15); PARTIAL THROMBOPLASTIN TIME 30.5 SEC (26.3-35.5); PROTHROMBIN TIME 11.7 SEC (9.6-11.6)
[2017-10-08 04:11] LABS: CREATININE 1.8 mg/dL (0.5-1.5); MAGNESIUM 1.9 mg/dL (1.80-2.40); PHOSPHORUS 1.3 mg/dL (2.5-4.9); POTASSIUM 3.6 mmol/L (3.5-5.1)
[2017-10-08] MEDS: POTASSIUM CHLORIDE 20 MEQ ERTAB PO PRN (05:28)
[2017-10-08 07:26] VITALS: BP 140/64
[2017-10-08] MEDS: CLOPIDOGREL BISULFATE 75 MG TAB PO SCH (07:54)
[2017-10-08] MEDS: METOPROLOL TARTRATE 50 MG TAB PO SCH (07:54)
[2017-10-08] MEDS: LISINOPRIL 20 MG TABLET PO SCH (07:55)
[2017-10-08] MEDS: ASPIRIN 81 MG EC TAB PO SCH (07:55)
[2017-10-08] MEDS: CALCITONIN 3.7 ML AEROSOL NS SCH (07:55)
[2017-10-08] MEDS: AMLODIPINE BESYLATE 5 MG TAB PO SCH (07:55)
[2017-10-08] MEDS: FISH OIL 1000 MG/CAP PO SCH (07:55)
[2017-10-08 11:23] VITALS: BP 100/54
[2017-10-08 16:12] VITALS: BP 137/57
[2017-10-08] MEDS ORDERED: POTASSIUM PHOS 15 mMOL+NS250ML 250 ML IV SCH (17:30)
== END 2017-10-08 17:45 | DRG 871 ==
LOC: EDH 12:41 → EDHIP 13:00 → 3BH 20:10 → 2DH 10-06 20:21
PROVIDERS: ADMIT Internal Medicine; ATTEND Internal Medicine
DX: A41.9 Sepsis, unspecified organism (principal); G92 Toxic encephalopathy; N17.9 Acute kidney failure, unspecified; D64.81 Anemia due to antineoplastic chemotherapy; C90.00 Multiple myeloma not having achieved remission; D70.1 Agranulocytosis secondary to cancer chemotherapy; E11.22 Type 2 diabetes mellitus with diabetic chronic kidney disease; N18.3 Chronic kidney disease, stage 3 (moderate); D69.59 Other secondary thrombocytopenia; I13.0 Hypertensive heart and chronic kidney disease with heart failure and stage 1 through stage 4 chronic kidney disease, or unspecified chronic kidney disease; N39.0 Urinary tract infection, site not specified; E83.52 Hypercalcemia; D64.9 Anemia, unspecified; E78.5 Hyperlipidemia, unspecified; B96.89 Other specified bacterial agents as the cause of diseases classified elsewhere; E11.65 Type 2 diabetes mellitus with hyperglycemia; E78.00 Pure hypercholesterolemia, unspecified; E83.42 Hypomagnesemia; E86.0 Dehydration; E87.6 Hypokalemia; G89.4 Chronic pain syndrome; I25.10 Atherosclerotic heart disease of native coronary artery without angina pectoris; I25.5 Ischemic cardiomyopathy; I50.9 Heart failure, unspecified; R62.7 Adult failure to thrive; T45.1X5A Adverse effect of antineoplastic and immunosuppressive drugs, initial encounter; Z74.01 Bed confinement status; Z79.02 Long term (current) use of antithrombotics/antiplatelets; Z79.82 Long term (current) use of aspirin; Z80.3 Family history of malignant neoplasm of breast; Z82.49 Family history of ischemic heart disease and other diseases of the circulatory system; Z83.3 Family history of diabetes mellitus
CPT/HCPCS: 36415; 71045; 74018; 80048; 80053; 82550; 82553; 83605; 83735; 83874; 83880; 84100; 84132; 84484; 85007; 85025; 85027; 85610; 85730; 87040; 87077; 87088; 87186; 93005; 97039; 99291; A4218; J0630; J0692; J1100; J1200; J1644; J2175; J2185; J3370; J3475; J3480; J3490; J7030

== ENCOUNTER 2017-11-02 11:02 | Observation (INO) | payer OTHER ==
[~2017-11-02] VITALS: Ht 162.6 cm; Wt 77.1 kg
[~2017-11-02 11:02] MED LIST changes: +LENA25CA PO; -TICA90TA PO
[2017-11-02 12:56] LABS: BASOPHILS % (AUTO) 0.2 % (0.0-5.0); EOSINOPHILS % (AUTO) 5.8 % (0.0-8.0); HEMATOCRIT 26.7 % (36-48); LYMPHOCYTES % (AUTO) 6.5 % (21.0-51.0); MEAN CORPUSCULAR HEMOGLOBIN 32.8 pg (27.0-33.0); MEAN CORPUSCULAR HGB CONC 34.9 g/dL (32.0-36.0); MEAN CORPUSCULAR VOLUME 93.9 fL (79-99); MONOCYTES % (AUTO) 4.7 % (3.0-13.0); NEUTROPHILS % (AUTO) 82.8 % (40.0-77.0); PLATELET COUNT (AUTO) 176 K/uL (130-400); RED BLOOD CELL COUNT(AUTO) 2.84 MIL/uL (4.00-5.50); WHITE BLOOD COUNT (AUTO) 6.4 K/uL (4.8-10.8)
[2017-11-02] MEDS ORDERED: SODIUM CHLORIDE 0.9% 500ML 500 ML IV ONE (12:58)
[2017-11-02 13:08] LABS: CREATININE 1.8 mg/dL (0.5-1.5)
[2017-11-02 13:13] LABS: ALBUMIN 2.1 g/dL (3.5-5.0); BILIRUBIN,TOTAL 0.8 mg/dL (0.2-1.0); TOTAL PROTEIN, SERUM 7.4 g/dL (6.0-8.3)
[2017-11-02 13:36] LABS: APPEARANCE,URINE Cloudy (CLEAR); BILIRUBIN,URINE Negative (NEGATIVE); COLOR,URINE Yellow (YELLOW); GLUCOSE, URINE (UA) Negative (NEGATIVE); KETONES,URINE Negative (NEGATIVE); LEUKOCYTE ESTERASE ,URINE Negative (NEGATIVE); NITRATE,URINE Negative (NEGATIVE); OCCULT BLOOD,URINE Negative (NEGATIVE); PROTEIN,URINE Negative (NEGATIVE); UROBILINOGEN,URINE 0.2 mg/dL (0.2-1.0)
[2017-11-02 13:54] LABS: BACTERIA,URINE Rare /HPF (None Seen); RBC,URINE 0-1 /HPF (0-1); SQUAMOUS EPITHELIAL CELL,UR Rare /HPF (0-2); WBC,URINE 0-1 /HPF (0-1)
[2017-11-02] MEDS ORDERED: POTASSIUM BICARB/CIT AC 25 MEQ TABLET.EFF ONE (14:29)
[2017-11-02] MEDS ORDERED: MORPHINE SULFATE 4 MG/1ML SYG ONE (15:53)
[2017-11-02] MEDS ORDERED: ONDANSETRON HCL MDV 20ML 2 MG/ML VIAL ONE (15:54)
[2017-11-02 20:00] VITALS: BP 92/46
[2017-11-02 23:00] VITALS: BP 82/40
[2017-11-02] MEDS ORDERED: SODIUM CHLORIDE 0.9% 500ML 500 ML IV SCH (23:00)
[2017-11-02 23:23] VITALS: BP 109/49
[2017-11-03] VITALS (7 sets, daily range): BP systolic 94–137; BP diastolic 42–61
[2017-11-03] MEDS ORDERED: SODIUM CHLORIDE 0.9% 1000ML 1,000 ML IV SCH (00:25)
[2017-11-03] MEDS ORDERED: ACETAMINOPHEN 325 MG TAB PO PRN (00:30)
[2017-11-03] MEDS ORDERED: POTASSIUM CHLORIDE 20MEQ/100ML 100 ML IV PRN (00:30)
[2017-11-03] MEDS ORDERED: HYDRALAZINE HCL 20 MG/ML VIAL IV PRN (00:30)
[2017-11-03] MEDS ORDERED: GLUCAGON 1MG KIT 1 MG ML IM PRN (00:30)
[2017-11-03] MEDS ORDERED: LIDOCAINE HCL-MPF 1% 2ML VIAL IVP PRN (00:30)
[2017-11-03] MEDS ORDERED: LACTULOSE 20 GM/30 ML UDCUP PO PRN ×2 (00:30→10:30)
[2017-11-03] MEDS ORDERED: POTASSIUM CHLORIDE 10% ELIXIR 20 MEQ/15 ML UDCUP PO PRN (00:30)
[2017-11-03] MEDS ORDERED: ONDANSETRON HCL MDV 20ML 2 MG/ML VIAL IVP PRN (00:30)
[2017-11-03] MEDS ORDERED: DEXTROSE 50%-WATER 50 ML DISP.SYRIN IV PRN (00:30)
[2017-11-03] MEDS ORDERED: MORPHINE SULFATE 2 MG/ML 1ML SYG IVP PRN (00:30)
[2017-11-03] MEDS ORDERED: MAGN400C PO (00:45)
[2017-11-03] MEDS ORDERED: ASCO500C6 PO (00:45)
[2017-11-03] MEDS ORDERED: ACET-2247 PO ×2 (00:45→03:04)
[2017-11-03] MEDS ORDERED: LACT10SO PO (00:45)
[2017-11-03] MEDS ORDERED: DEXA4TAB PO (00:45)
[2017-11-03] MEDS ORDERED: DIPH25 PO (00:45)
[2017-11-03] MEDS ORDERED: FOLI1TAB85 PO (00:45)
[2017-11-03] MEDS ORDERED: CALC400I NASAL (00:45)
[2017-11-03] MEDS ORDERED: DIPH30C TP (00:45)
[2017-11-03] MEDS ORDERED: METO-408 PO (00:45)
[2017-11-03] MEDS ORDERED: CLONIDINE HCL 0.1 MG TABLET PO PRN (02:00)
[2017-11-03] MEDS ORDERED: CALC3.8S NS (03:04)
[2017-11-03 04:57] LABS: BASOPHILS % (AUTO) 0.2 % (0.0-5.0); EOSINOPHILS % (AUTO) 8.9 % (0.0-8.0); HEMATOCRIT 22.2 % (36-48); LYMPHOCYTES % (AUTO) 9.9 % (21.0-51.0); MEAN CORPUSCULAR HEMOGLOBIN 35.6 pg (27.0-33.0); MEAN CORPUSCULAR VOLUME 93.6 fL (79-99); MONOCYTES % (AUTO) 7.4 % (3.0-13.0); NEUTROPHILS % (AUTO) 73.6 % (40.0-77.0); NUCLEATED RED BLOOD CELLS 0.1 % (0.0-0.19); PLATELET COUNT (AUTO) 149 K/uL (130-400); RED BLOOD CELL COUNT(AUTO) 2.38 MIL/uL (4.00-5.50); RED CELL DISTRIBUTION WIDTH 16.4 % (11.0-15.5); WHITE BLOOD COUNT (AUTO) 5.2 K/uL (4.8-10.8)
[2017-11-03 05:19] LABS: CARBON DIOXIDE 30 mmol/L (21-32); CHLORIDE 97 mmol/L (101-111); CREATINE KINASE MB < 0.5 ng/mL (0.5-3.6); CREATINE KINASE, TOTAL 20 U/L (21-232); CREATININE 2.2 mg/dL (0.5-1.5); GLOMERULAR FILTR. RATE CALC 23 mL/min (>60); GLUCOSE,RANDOM 60 mg/dL (70-105); MYOGLOBIN 60 ng/mL (10-92); POTASSIUM 3.5 mmol/L (3.5-5.1); SODIUM SERUM 131 mmol/L (136-145); TROPONIN I 0.09 ng/mL (0.00-0.06); UREA NITROGEN, BLOOD 49 mg/dL (7-18)
[2017-11-03] MEDS: POTASSIUM CHLORIDE 20 MEQ ERTAB PO PRN (06:05)
[2017-11-03] MEDS: INSULIN HUMULIN R 100 UNIT/ML 3ML SQ SCH ×4 (06:31→20:50)
[2017-11-03] MEDS: FAMOTIDINE 20MG TAB 20 MG TAB PO SCH ×2 (10:11→20:50)
[2017-11-03] MEDS ORDERED: MORPHINE SULFATE 4 MG/1ML SYG ONE ×2 (11:53→20:57)
[2017-11-03] MEDS ORDERED: DIPHENHYDRAMINE HCL TP PRN (14:00)
[2017-11-03] MEDS ORDERED: ZINC ACET TP PRN (14:00)
[2017-11-03] MEDS: ZINC ACET TP PRN (16:01)
[2017-11-03] MEDS: DIPHENHYDRAMINE HCL TP PRN (16:01)
[2017-11-03] MEDS: MAGNESIUM OXIDE 400 MG TABLET PO SCH (20:50)
[2017-11-03] MEDS: ASCORBIC ACID 500 MG TAB PO SCH (20:50)
[2017-11-03] MEDS: ATORVASTATIN CALCIUM 20 MG TABLET PO SCH (20:50)
[2017-11-03] MEDS: METOPROLOL TARTRATE 25 MG TAB PO SCH (21:00)
[2017-11-03] MEDS: DiphenhydrAMINE HCL 50 MG/ML VIAL IV PRN (23:55)
[2017-11-04 03:00] VITALS: BP 102/41
[2017-11-04 04:43] LABS: BASOPHILS % (AUTO) 0.3 % (0.0-5.0); HEMATOCRIT 22.1 % (36-48); LYMPHOCYTES % (AUTO) 15.7 % (21.0-51.0); MEAN CORPUSCULAR HEMOGLOBIN 32.3 pg (27.0-33.0); MEAN CORPUSCULAR HGB CONC 34.6 g/dL (32.0-36.0); MEAN CORPUSCULAR VOLUME 93.4 fL (79-99); MONOCYTES % (AUTO) 10.5 % (3.0-13.0); NEUTROPHILS % (AUTO) 61.5 % (40.0-77.0); NUCLEATED RED BLOOD CELLS 0.1 % (0.0-0.19); PLATELET COUNT (AUTO) 147 K/uL (130-400); RED BLOOD CELL COUNT(AUTO) 2.36 MIL/uL (4.00-5.50); RED CELL DISTRIBUTION WIDTH 16.6 % (11.0-15.5); WHITE BLOOD COUNT (AUTO) 4.2 K/uL (4.8-10.8)
[2017-11-04 04:46] LABS: POTASSIUM 3.6 mmol/L (3.5-5.1)
[2017-11-04] MEDS: INSULIN HUMULIN R 100 UNIT/ML 3ML SQ SCH ×4 (06:31→20:19)
[2017-11-04] MEDS: POTASSIUM CHLORIDE 20 MEQ ERTAB PO PRN ×2 (06:38→08:44)
[2017-11-04] MEDS: DIPHENHYDRAMINE HCL TP PRN (06:40)
[2017-11-04] MEDS: ZINC ACET TP PRN (06:40)
[2017-11-04 07:51] VITALS: BP_SYST 122; BP_SYST 125; BP_DIAS 48; BP_DIAS 85
[2017-11-04] MEDS: FAMOTIDINE 20MG TAB 20 MG TAB PO SCH ×2 (08:44→20:12)
[2017-11-04] MEDS: MAGNESIUM OXIDE 400 MG TABLET PO SCH ×2 (08:44→20:12)
[2017-11-04] MEDS: ASCORBIC ACID 500 MG TAB PO SCH ×2 (08:44→20:12)
[2017-11-04] MEDS: METOPROLOL TARTRATE 25 MG TAB PO SCH ×2 (08:45→20:18)
[2017-11-04] MEDS ORDERED: CALCITONIN 3.7 ML AEROSOL NASAL SCH (09:00)
[2017-11-04] MEDS ORDERED: LENALIDOMIDE 25 MG PO SCH (09:00)
[2017-11-04] MEDS ORDERED: FOLIC ACID/VITAMIN B COMP W-C 1 MG CAPSULE PO SCH (09:00)
[2017-11-04] MEDS ORDERED: FISH OIL 1000 MG/CAP PO SCH (09:00)
[2017-11-04] MEDS ORDERED: ASPIRIN 81 MG EC TAB PO SCH (09:00)
[2017-11-04] MEDS ORDERED: CLOPIDOGREL BISULFATE 75 MG TAB PO SCH (09:00)
[2017-11-04 11:37] VITALS: BP 107/45
[2017-11-04] MEDS ORDERED: HYDROCODONE/ACETAMINOPHEN 5/325 MG TAB PO PRN ×2 (13:30)
[2017-11-04 16:17] VITALS: BP 121/50
[2017-11-04] MEDS: DiphenhydrAMINE HCL 50 MG/ML VIAL IV PRN (20:13)
[2017-11-04] MEDS: ATORVASTATIN CALCIUM 20 MG TABLET PO SCH (20:13)
[2017-11-04 20:21] VITALS: BP 108/41
== END 2017-11-04 20:45 ==
LOC: EDH 11:02 → EDHIP 14:38 → 3BH 11-03 00:28
PROVIDERS: ADMIT Family Medicine; ATTEND Family Medicine
DX: R55 Syncope and collapse (principal); E86.0 Dehydration; C90.00 Multiple myeloma not having achieved remission; I13.0 Hypertensive heart and chronic kidney disease with heart failure and stage 1 through stage 4 chronic kidney disease, or unspecified chronic kidney disease; I50.9 Heart failure, unspecified; N18.9 Chronic kidney disease, unspecified; I48.91 Unspecified atrial fibrillation; E78.5 Hyperlipidemia, unspecified; I42.9 Cardiomyopathy, unspecified; Z82.49 Family history of ischemic heart disease and other diseases of the circulatory system; Z83.3 Family history of diabetes mellitus
CPT/HCPCS: 36415 ×3; 70450; 71045; 74176; 80048 ×2; 80053; 81001; 82150; 82550; 82553; 82948 ×9; 83690; 83874; 84443; 84484 ×2; 85014; 85018; 85025 ×3; 86850; 86900; 86901; 93005 ×2; 93880; 96361; 96374; 96375; 96376; 97039 ×2; 97161; 99285; A4600; G0378 ×54; G8978; G8979; G8981; G8982; G8983; J1200 ×2; J2270 ×3; J7030; J7040

== ENCOUNTER 2017-11-06 09:19 | Observation (INO) | payer OTHER ==
[~2017-11-06] VITALS: Ht 162.6 cm; Wt 75.4 kg
[~2017-11-06 09:19] MED LIST changes: +ACET-2247 PO; -AMLO10TA2 PO; +ASCO500C6 PO; +CALC3.8S NS; +DEXA4TAB PO; +DIPH25 PO; +DIPH30C TP; +FOLI1TAB85 PO; -FURO40TA7 PO; +LACT10SO PO; -LISI-613 PO; +MAGN400C PO; -METO-391 PO; +METO-408 PO
[2017-11-06 10:30] LABS: BASOPHILS % (AUTO) 0.4 % (0.0-5.0); EOSINOPHILS % (AUTO) 0.9 % (0.0-8.0); HEMATOCRIT 23.3 % (36-48); LYMPHOCYTES % (AUTO) 23.5 % (21.0-51.0); MEAN CORPUSCULAR HEMOGLOBIN 33.8 pg (27.0-33.0); MEAN CORPUSCULAR HGB CONC 35.8 g/dL (32.0-36.0); MEAN CORPUSCULAR VOLUME 94.4 fL (79-99); MONOCYTES % (AUTO) 15.9 % (3.0-13.0); NEUTROPHILS % (AUTO) 59.3 % (40.0-77.0); NUCLEATED RED BLOOD CELLS 0.1 % (0.0-0.19); PLATELET COUNT (AUTO) 207 K/uL (130-400); RED BLOOD CELL COUNT(AUTO) 2.46 MIL/uL (4.00-5.50); RED CELL DISTRIBUTION WIDTH 16.8 % (11.0-15.5)
[2017-11-06 10:39] LABS: CREATININE 1.9 mg/dL (0.5-1.5); POTASSIUM 4.1 mmol/L (3.5-5.1)
[2017-11-06 10:43] LABS: ALBUMIN 2.3 g/dL (3.5-5.0); BILIRUBIN,TOTAL 0.6 mg/dL (0.2-1.0); TOTAL PROTEIN, SERUM 7.3 g/dL (6.0-8.3)
[2017-11-06] MEDS ORDERED: SODIUM CHLORIDE 0.9% 500ML 500 ML IV ONE (11:16)
[2017-11-06 11:28] LABS: APPEARANCE,URINE Clear (CLEAR); BILIRUBIN,URINE Negative (NEGATIVE); COLOR,URINE Yellow (YELLOW); GLUCOSE, URINE (UA) Negative (NEGATIVE); KETONES,URINE Trace mg/dL (NEGATIVE); LEUKOCYTE ESTERASE ,URINE Negative (NEGATIVE); NITRATE,URINE Negative (NEGATIVE); OCCULT BLOOD,URINE Negative (NEGATIVE); PROTEIN,URINE Trace (NEGATIVE); UROBILINOGEN,URINE 0.2 mg/dL (0.2-1.0)
[2017-11-06 11:52] LABS: BACTERIA,URINE Rare /HPF (None Seen); MUCUS,URINE Rare LPF (None Seen); RBC,URINE 0-1 /HPF (0-1); SQUAMOUS EPITHELIAL CELL,UR Rare /HPF (0-2); WBC,URINE 0-1 /HPF (0-1); YEAST,URINE BUDDING Rare /HPF (None Seen)
[2017-11-06 14:00] VITALS: BP 138/55
[2017-11-06] MEDS ORDERED: ACETAMINOPHEN 325 MG TAB PO PRN ×2 (17:15)
[2017-11-06] MEDS ORDERED: ONDANSETRON HCL 4 MG/2 ML VIAL IVP PRN (17:15)
[2017-11-06] MEDS: SODIUM CHLORIDE 0.9% 1000ML 1,000 ML IV SCH ×2 (17:15→20:40)
[2017-11-06] MEDS ORDERED: LACTULOSE 20 GM/30 ML UDCUP PO PRN (17:15)
[2017-11-06] MEDS ORDERED: ONDANSETRON HCL MDV 20ML 2 MG/ML VIAL IVP PRN (17:30)
[2017-11-06 19:00] VITALS: BP 141/61
[2017-11-06 23:24] VITALS: BP 166/69
[2017-11-07] MEDS ORDERED: ZINC56.7 TP (02:45)
[2017-11-07] MEDS ORDERED: HYDR-309 PO (02:45)
[2017-11-07 03:39] VITALS: BP 155/69
[2017-11-07] MEDS: SODIUM CHLORIDE 0.9% 1000ML 1,000 ML IV SCH (06:06)
[2017-11-07 06:47] LABS: MEAN CORPUSCULAR HEMOGLOBIN 32.5 pg (27.0-33.0); MEAN CORPUSCULAR HGB CONC 34.4 g/dL (32.0-36.0); MEAN CORPUSCULAR VOLUME 94.4 fL (79-99); PLATELET COUNT (AUTO) 208 K/uL (130-400); RED BLOOD CELL COUNT(AUTO) 2.21 MIL/uL (4.00-5.50); RED CELL DISTRIBUTION WIDTH 17.4 % (11.0-15.5); WHITE BLOOD COUNT (AUTO) 4.2 K/uL (4.8-10.8)
[2017-11-07 07:00] VITALS: BP 159/75
[2017-11-07 07:01] LABS: CREATININE 1.4 mg/dL (0.5-1.5); POTASSIUM 3.9 mmol/L (3.5-5.1)
[2017-11-07 07:11] LABS: HEMATOCRIT 20.8 % (36-48)
[2017-11-07 07:22] LABS: BASOPHILS % (MANUAL) 1 % (0-2); EOSINOPHILS % (MANUAL) 3 % (1-6); LYMPHOCYTES % (MANUAL) 16 % (22-44); MAN.DIFF COMMENT-IMPRESSION MANUAL DIFFERENTIAL; MONOCYTES % (MANUAL) 11 % (2-9); PLATELET MORPHOLOGY COMMENT ADEQUATE; SEGMENTED NEUTROPHILS % 69 % (40-70)
[2017-11-07] MEDS ORDERED: LACTULOSE 20 GM/30 ML UDCUP PO PRN (10:15)
[2017-11-07 11:12] VITALS: BP 163/70
[2017-11-07] MEDS ORDERED: DIPHENHYDRAMINE HCL 2% 30 GM CREAM.GM. TP PRN (13:15)
[2017-11-07 16:11] VITALS: BP 138/76
[2017-11-07] MEDS: ASCORBIC ACID 500 MG TAB PO SCH (18:00)
[2017-11-07 19:35] VITALS: BP 133/63
[2017-11-07] MEDS: CALCITONIN 3.7 ML AEROSOL NS SCH (20:52)
[2017-11-07] MEDS: MAGNESIUM OXIDE 400 MG TABLET PO SCH (20:52)
[2017-11-07] MEDS: METOPROLOL TARTRATE 25 MG TAB PO SCH (20:52)
[2017-11-07] MEDS ORDERED: ATORVASTATIN CALCIUM 20 MG TABLET PO SCH (21:00)
[2017-11-07 23:55] VITALS: BP 122/56
[2017-11-08 04:05] VITALS: BP 127/59
[2017-11-08] MEDS ORDERED: PHARMACY COMMUNICATION MISC SCH (04:15)
[2017-11-08] MEDS ORDERED: DEXAMETHASONE 4 MG TAB PO SCH ×2 (08:00→09:00)
[2017-11-08 08:11] VITALS: BP 172/76
[2017-11-08] MEDS ORDERED: ASPIRIN 81 MG EC TAB PO SCH (09:00)
[2017-11-08] MEDS ORDERED: LENALIDOMIDE 25 MG PO SCH (09:00)
[2017-11-08] MEDS ORDERED: ZINC OXIDE OINT 60GM TUBE TP SCH (09:00)
[2017-11-08] MEDS ORDERED: FISH OIL 1000 MG/CAP PO SCH (09:00)
[2017-11-08] MEDS ORDERED: CLOPIDOGREL BISULFATE 75 MG TAB PO SCH (09:00)
[2017-11-08] MEDS ORDERED: VITAMIN B COMPLEX 1 CAPSULE PO SCH (09:00)
[2017-11-08] MEDS: ASCORBIC ACID 500 MG TAB PO SCH (09:29)
[2017-11-08] MEDS: MAGNESIUM OXIDE 400 MG TABLET PO SCH (09:29)
[2017-11-08] MEDS: METOPROLOL TARTRATE 25 MG TAB PO SCH (09:29)
[2017-11-08] MEDS: CALCITONIN 3.7 ML AEROSOL NS SCH (10:01)
[2017-11-12] MEDS ORDERED: DEXAMETHASONE 4 MG TAB PO SCH (08:00)
[2017-11-12] MEDS ORDERED: PREDNISONE 20 MG TABLET PO SCH (09:00)
== END 2017-11-08 12:50 | disposition home or self-care (01) ==
LOC: EDH 09:19 → EDHIP 11:40 → 3DH 16:46
PROVIDERS: ADMIT Family Medicine; ATTEND Family Medicine
DX: R41.82 Altered mental status, unspecified (principal); E86.0 Dehydration; D64.9 Anemia, unspecified; E87.2 Acidosis; I11.0 Hypertensive heart disease with heart failure; I50.9 Heart failure, unspecified; I48.91 Unspecified atrial fibrillation; G89.4 Chronic pain syndrome; E78.5 Hyperlipidemia, unspecified; N28.9 Disorder of kidney and ureter, unspecified; Z87.440 Personal history of urinary (tract) infections; E83.52 Hypercalcemia; Z83.3 Family history of diabetes mellitus; Z82.49 Family history of ischemic heart disease and other diseases of the circulatory system; Z79.899 Other long term (current) drug therapy; Z79.82 Long term (current) use of aspirin; Z79.01 Long term (current) use of anticoagulants
CPT/HCPCS: 36415 ×2; 70450; 71045; 80048; 80053; 81001; 83605 ×2; 84484; 85025 ×2; 87040; 87088; 93005; 96360; 96361 ×2; 97039; 97161; 99285; G0378 ×49; G8978; G8979; G8980; G8981; G8982; G8983; J7030 ×2; J7040; J8540